=== PATIENT | female | born 1965 | race American Indian/Alaskan Native ===

== ENCOUNTER 2016-12-06 07:57 | Emergency (ER) | payer BC ==
[2016-12-06 08:12] VITALS: BP 138/90; PULSE 92; RESP 16; TEMP 98.3; O2SAT 99; BMI 33.3
--- NOTE | 2016-12-06 08:22 | ED PDOC ---
Arrival/HPI - General Chief Complaint: ENT Problem Time Seen by Provider: 12/06/16 07:59 Historian: Patient - History of Present Illness Narrative History of Present Illness (Text): 12/06/16 08:00 Delilah Rosario is a 51 year old female, whose past medical history includes tonsillectomy and a thyroid condition, who presents to the emergency department complaining of throat pain and right sided ear pain today. Patient states that she tried to alleviate symptoms by gargling warm water with salt but with no relief. Patient also states that she cannot feel if her throat is swollen, however, she feels a burning sensation to the back of her throat. Patient notes that she experiences difficulty swallowing and pain when swallowing. Patient also notes that she had frequent infections when she was younger. Patient denies any nasal congestion, runny nose, or any other complaint at this time. PMD: None Time/Duration: 4-6 hours Symptom Onset: Gradual Severity Level: Mild Activities at Onset: Light Past Medical History - Provider Review Nursing Documentation Reviewed: Yes - Infectious Disease Hx of Infectious Diseases: None - Tetanus Immunization Tetanus Immunization: Unknown - Cardiac Hx Cardiac Disorders: No Hx Pacemaker: No - Pulmonary Hx Respiratory Disorders: Yes Hx Bronchitis: Yes - Neurological Hx Neurological Disorder: Yes Hx Headaches: Yes Other/Comment: brain aneurysm - HEENT Hx HEENT Disorder: No - Renal Hx Renal Disorder: No - Endocrine/Metabolic Hx Endocrine Disorders: Yes Hx Hypothyroidism: Yes - Hematological/Oncological Hx Blood Disorders: No - Integumentary Hx Dermatological Disorder: No - Musculoskeletal/Rheumatological Hx Musculoskeletal Disorders: Yes Hx Arthritis: Yes - Gastrointestinal Hx Gastrointestinal Disorders: No - Genitourinary/Gynecological Hx Genitourinary Disorders: No - Psychiatric Hx Psychophysiologic Disorder: No Hx Substance Use: No - Surgical History Other/Comment: as per pt. she had surgery done for brain aneurysm dated 2013. - Anesthesia Hx Anesthesia Reactions: No Hx Malignant Hyperthermia: No - Suicidal Assessment Feels Threatened In Home Enviroment: No Family/Social History - Physician Review Nursing Documentation Reviewed: Yes Family/Social History: No Known Family HX Smoking Status: Never Smoked Hx Alcohol Use: Yes (occassional) Hx Substance Use: No Hx Substance Use Treatment: No Allergies/Home Meds Allergies/Adverse Reactions: Allergies acetaminophen Allergy (Verified 12/06/16 08:09) NAUSEA hydrocodone Allergy (Verified 12/06/16 08:09) NAUSEA Home Medications: Home Meds Medication Instructions Recorded Confirmed Levothyroxine [Synthroid] 112 mcg PO DAILY 12/06/16 12/06/16 Review of Systems - Review of Systems Constitutional: absent: Fevers, Night Sweats Eyes: absent: Vision Changes ENT: Other (Throat pain with burning sensation to back of throat). absent: Hearing Changes Cardiovascular: absent: Chest Pain Gastrointestinal: absent: Abdominal Pain Genitourinary Female: absent: Dysuria, Urine Output Changes Musculoskeletal: absent: Arthralgias, Back Pain, Neck Pain Skin: absent: Rash Neurological: absent: Headache, Dizziness Endocrine: absent: Diaphoresis Hemo/Lymphatic: absent: Adenopathy Psychiatric: absent: Depression Physical Exam Vital Signs Reviewed: Yes Vital Signs Temp Pulse Resp BP Pulse Ox 12/06/16 08:04 98.3 F 92 H 16 138/90 99 Temperature: Afebrile Blood Pressure: Normal Pulse: Tachycardic Respiratory Rate: Normal Appearance: Positive for: Well-Appearing, Non-Toxic, Comfortable Pain Distress: None Mental Status: Positive for: Alert and Oriented X 3 - Systems Exam Head: Present: Atraumatic, Normocephalic Pupils: Present: PERRL Extroacular Muscles: Present: EOMI Conjunctiva: Present: Normal Mouth: Present: Moist Mucous Membranes Pharnyx: Present: Other (erythema and exudates to the right side of throat) Neck: Present: Normal Range of Motion. No: Lymphadenopathy Respiratory/Chest: Present: Clear to Auscultation, Good Air Exchange. No: Respiratory Distress, Accessory Muscle Use Cardiovascular: Present: Regular Rate and Rhythm, Normal S1, S2. No: Murmurs Abdomen: Present: Normal Bowel Sounds. No: Tenderness, Distention, Peritoneal Signs Back: Present: Normal Inspection Upper Extremity: Present: Normal Inspection. No: Cyanosis, Edema Lower Extremity: Present: Normal Inspection. No: Edema Neurological: Present: GCS=15, CN II-XII Intact, Speech Normal Skin: Present: Warm, Dry, Normal Color. No: Rashes Psychiatric: Present: Alert, Oriented x 3, Normal Insight, Normal Concentration Medical Decision Making ED Course and Treatment: 12/06/16 08:00 Impression: 51 year old female complaining of throat pain with associated pain when swallowing for a few hours. Differential Diagnosis include but are not limited to: Pharyngitis Plan: -- Amoxil -- Patient's airway is not compromised. She is able to drink fluids and take pills. She will follow up with her primary care doctor. Prior Visits: Notes and results from previous visits were reviewed. Patient last seen in ED on 09/20/15 for shortness of breath, cough, and generalized weakness that morning. Patient was discharged home. - Medication Orders Current Medication Orders: Discontinued Medications Amoxicillin (Amoxil 500 Mg Cap) 500 mg PO STAT STA PRN Reason: Protocol Stop: 12/06/16 08:20 Last Admin: 12/06/16 08:26 Dose: 500 mg - Scribe Statement The provider has reviewed the documentation as recorded by the Chandrika Archibald Provider Scribe Attestation: All medical record entries made by the Chandrika were at my direction and personally dictated by me. I have reviewed the chart and agree that the record accurately reflects my personal performance of the history, physical exam, medical decision making, and the department course for this patient. I have also personally directed, reviewed, and agree with the discharge instructions and disposition. Disposition/Present on Arrival - Present on Arrival Any Indicators Present on Arrival: No History of DVT/PE: No History of Uncontrolled Diabetes: No Urinary Catheter: No History of Decub. Ulcer: No History Surgical Site Infection Following: None - Disposition Have Diagnosis and Disposition been Completed?: Yes Diagnosis: Pharyngitis Disposition: HOME/ ROUTINE Disposition Time: 08:33 Patient Plan: Discharge Patient Problems: Current Active Problems Problem Status Onset Pharyngitis Acute Condition: GOOD Discharge Instructions (ExitCare): Pharyngitis (ED) Additional Instructions: Ms Rosario, thank you for letting us take care of you today. Your provider was Dr. Sands. You were treated for Pharyngitis. The emergency medical care you received today was directed at your acute symptoms. If you were prescribed any medication, please fill it and take as directed. It may take several days for your symptoms to resolve. Return to the Emergency Department if your symptoms worsen, do not improve, or if you have any other problems. Please contact your doctor or call one of the physicians/clinics you have been referred to that are listed on the Patient Visit Information form that is included in your discharge packet. Bring any paperwork you were given at discharge with you along with any medications you are taking to your follow up visit. Our treatment cannot replace ongoing medical care by a primary care provider (PCP) outside of the emergency department. Thank you for allowing the [facility] team to be part of your care today. If you had an X-Ray or CT scan: A Radiologist will review the ED reading if any change in treatment is needed we will contact you. If you had a blood, urine, or wound culture: It will take several days for the results, if any change in treatment is needed we will contact you. If you had an STI test: It will take 48 hours for the results. Please call after 1 week if you have not heard back. Prescriptions: Amoxicillin 500 mg PO BID #20 tablet Benzocaine/Menthol [Cepacol Sore Throat 15 mg-2.6 mg] 1 ibeth MM TID PRN #1 PRN Reason: Sore Throat Ibuprofen [Motrin] 600 mg PO Q6 PRN #30 tab PRN Reason: Pain, Moderate (4-7) Referrals: [facility] Profile [facility]q, [Non-Staff] - Follow up with primary Forms: [employer] ([place]), WORK NOTE
== END 2016-12-06 08:34 | disposition home or self-care (01) ==
LOC: ED 07:57
DX: J02.9 Acute pharyngitis, unspecified (principal)